=== PATIENT | female | born 1945 | race Caucasian/White ===

== ENCOUNTER → 2018-07-24 | Outpatient (CLI) | payer MEDICARE, OTHER ==
--- NOTE | 2018-07-24 13:08 | Diagnostic Imaging Report ---
TECHNIQUE: Magnetic resonance imaging of the RIGHT foot (forefoot) was performed WITHOUT injected contrast. HISTORY: Osteomyelitis, second toe, red, swollen, will not heal after surgery COMPARISON: None available. DISCUSSION: Numerous susceptibility artifacts and inhomogeneous fat saturation, most notably about the fused first metatarsophalangeal joint, second toe and head of the second metatarsal bone, and head of the third metatarsal bone. Bone: Bone marrow edema and decreased fatty marrow signal involving the distal second phalanx. Joints: Osseous fusion of the first metatarsophalangeal joint and second proximal interphalangeal joint.. Valgus alignment at the first interphalangeal joint. Flexion at the second distal interphalangeal joint. Soft Tissues: Moderate dorsal soft tissue edema. Off tissue edema of the second digit with apparent defect at the distal aspect. IMPRESSION: 1. Findings compatible with osteomyelitis involving the second distal phalanx. 2. No soft tissue abscess. Signed by: Dr. Tereso Whitt D.O., M.M.M. on 07/24/2018 1:05 PM
== END ==
LOC: MRI 09:31
PROVIDERS: ATTEND Podiatrist Foot Surgery
DX: M86.8X7 Other osteomyelitis, ankle and foot (principal)